=== PATIENT | female | born 1995 | race Caucasian/White ===

== ENCOUNTER 2025-02-12 10:53 | Outpatient (AMB) | payer BC, SELFPAY ==
--- OUTSIDE RECORDS SUMMARY | 2024-07-18 06:15 | XMS_ITS ---
Author Organization [facility] Address [address] [place] [id number] Care Team Providers Care Electrolysis Investigator Name Role Phone Nba Sallie Unavailable [phone] Encounters Encounter Location Date Provider Diagnosis [address] [id number] 07/18/2024 Sallie Arango Plan Of Treatment No Information Progress Notes * Denita JOHNSON NDOB:1995 (29 yo F)Acc No.[id number]:07/18/2024 Progress Notes Patient: Denita MERCADO Provider: Trinh Arango DPM :1995 A ge:29 Y S ex:Female Date:07/18/2024 Address:[address] [place], [place] [id number] Subjective: * Chief Complaints: * * Medical History: Objective: * Vitals: Assessment: Plan: * Treatment: * Images: * The named appointment provid er may or may not be the originator of this progress note, and it is not deemed complete until electronically signed by the appointment provider. Sign off status: Pending * Provider: Trinh Arango DPM Date: 0 07/18/2024 Generated for Printi ng/Faxing/eTransmitting on: 1 03:07 AM EDT
--- OUTSIDE RECORDS SUMMARY | 2024-08-11 06:30 | XMS_ITS ---
Author Organization [facility] Address [address] [place] [phone] Care Team Providers Care Batch Plant Operator Name Role Phone Nba Sallie Unavailable [phone] Encounters Encounter Location Date Provider Diagnosis [address] [address] 08/11/2024 Sallie Arango Plan Of Treatment No Information Progress Notes * Denita JOHNSON NDOB:1995 (29 yo F)Acc No.[id number]:08/11/2024 Progress Notes Patient: Denita MERCADO Provider: Trinh Arango DPM :1995 A ge:29 Y S ex:Female Date:08/11/2024 Address:[address] [place], [place] [phone] Subjective: * Chief Complaints: * * Medical History: Objective: * Vitals: Assessment: Plan: * Treatment: * Images: * The named appointment provid er may or may not be the originator of this progress note, and it is not deemed complete until electronically signed by the appointment provider. Sign off status: Pending * Provider: Trinh Arango DPM Date: 0 08/11/2024 Generated for Printi ng/Faxing/eTransmitting on: 1 03:07 AM EDT
--- OUTSIDE RECORDS SUMMARY | 2024-08-14 05:30 | XMS_ITS ---
Author Organization [facility] [address] Address [address] [place] [address] Care Team Providers Care Honeycomb Decapper Name Role Phone SILVERMAN, BIPIN Unavailable [phone] Encounters Encounter Location Date Provider Diagnosis [facility] [address] [place] [address] 08/14/2024 BIPIN SILVERMAN Plan Of Treatment Next Appt Details Provider Name:BIPIN SILVERMAN 03/19/2025 01:00:00 PM, [address], [place], [phone], Progress Notes * Roderick PASTRANA OB:1995 (29 yo F)Acc No.[id number]:08/14/2024 Progress Notes Patient: Mati BUENODenita SANTANA Provider: Lisa MYERS PA-C :1995 A ge:29 Y S ex:Female Date:08/14/2024 Address:[address] [place], [place] [phone] Subjective: * Chief Complaints: * * Medical History: Objective: * Vitals: Assessment: Plan: * Treatment: * Images: Billing Information: * Visit Code: * Procedure Codes: Care Plan Details* * Electronic signature of HARSHA SILVERMAN PA-C on 02/12/2025 at 03:07 AM EDT Sign off status: Pending * Provider: Lisa MYERS PA-C Date: 0 08/14/2024 Generated for Loly logan/Briana/eTransmitting on: 1 03:07 AM EDT
--- NOTE | 2025-02-12 10:55 | A.OFFVIS_ITS ---
Vital Signs 02/12/25 11:00 Height 5 ft 5 in Weight 130 lb BMI 21.6 BP 129/74 Blood Pressure Location Rt brachial Position Sitting Respiration 16 Pulse 55 Pulse Source Pulse Oximeter Intake Visit Reasons: Follow up - Migranes [facility] patient Waterproofer Required: No Allergies No Known Allergies (No Known Allergies*) Allergy (Unverified 01/25/20 16:56) Medication List - Last Reconciled 02/12/25 by Charlette Mata, MARJAN erenumab-aooe (Aimovig Autoinjector) mg subcut levonorgestrel (Mirena) intrauterine ubrogepant (Ubrelvy) mg PO HPI Comments Details: Denita is a 29-year-old female patient with a past medical history of headaches and anxiety who was a previous patient of mine at [facility]. She is here today to reestablish care with myself. I last saw her in July of 2024 at which time she was started on Aimovig 70 mg subcutaneous monthly injections. She has been previously trialed on Emgality with some initial improvement but affects wearing off. She has also been on topiramate for prevention in the past with some marginal benefit. She last saw Lima Stack. ZYGLO INSPECTOR at [facility] in January of 2025. At that time, she was continued on the Aimovig, magnesium and riboflavin supplementation, and Ubrelvy. She tells me today that her migraines have been much less on the Aimovig. Her last migraine was approximately 3 weeks ago and she can not identify any specific triggers aside from a busy day at work and possibly some bright lights. She does however note that the week leading up to her next injection she does tend to have more breakthrough migraines. She has been using the Ubrelvy 100 mg as needed. She tells me that it does resolve her migraine but it takes approximately 2 hours for complete headache . Her migraine characteristics have not changed over time and include severe head pain accompanied by nausea and vomiting often awakening her from sleep. She did self discontinue the topiramate and found no benefit with the magnesium and riboflavin and has since stopped taking that as well. Past medication trials: Topiramate 100 mg twice daily marginal benefit Amitriptyline 10 mg-no benefit and somnolence Propranolol-no benefit and nausea Sumatriptan-no significant benefit Rizatriptan-no significant benefit Eletriptan-no significant benefit Emgality-some initial benefit but over time stopped working Prior workup: MRI of the brain with without contrast performed 02/10/[address] [facility]: No mass effect, midline shift, intracranial hemorrhage, or acute in farction. No hydrocephalus. Normal flow voids. No white matter hyperintensities. Unremarkable orbits, orbital soft tissues, mastoid air cells. No acute calvarial abnormality. Unremarkable paranasal sinuses. Midline structures are unremarkable. Impression: No acute intracranial abnormality. No findings to explain patient's symptoms. [facility] Medical History (Updated 02/12/25 @ 11:35 by Charlette Mata CNP) Migraine Social History Alcohol intake: never Patient Tobacco Use Status: Never used Tobacco Review of Systems Const All systems reviewed & are unremarkable except as noted in HPI and below Physical Exam Vital Signs: Last Vital Signs Pulse 55 02/12/25 11:00 Resp 16 02/12/25 11:00 BP 129/74 02/12/25 11:00 BMI result Body Mass Index 21.6 Const General: cooperative, healthy appearing, comfortable and no acute distress Nutritional Appearance: well nourished Orientation/consciousness: patient oriented x3 Limitations: no limitations HEENT Head: Yes normal to inspection and Yes normocephalic Eyes General: appearance normal, both eyes and all related structures Visual Dutton: normal visual dutton by confrontation Alignment and Position: alignment normal Periorbital: periorbital findings normal Eyelids: Yes eyelids normal Conjunctivae: conjunctivae normal Sclerae: sclerae normal Neck Neck: Yes normal visual inspection and Yes full ROM General: Yes no CVA tenderness Back/Spine/Pelvis Back: no CVA tenderness Cervical Spine: normal cervical lordosis Thoracic/Lumbar Spine: thoracic and lumbar spine normal to inspection Neuro General: patient oriented x3 and deep tendon reflexes 2+ bilaterally Cranial nerves: Yes CN's II-XII intact bilaterally and Yes Facial sensation intact/muscles of mastication intact Cognition (Neuro): normal cognition Gait exam (Neuro): Normal gait present Motor exam (neuro): 5/5 motor strength present throughout and no tremor noted Sensory Exam: double simultaneous stimulation for sensation normal Romberg Test: Negative Pupils: Normal pupillary reactivity/response: bilateral Psych Appearance: grossly normal Mental Status: mental status grossly normal Speech and movement: Normal speech and movement present and Clear speech present Affect: normal affect Attitude: cooperative Thought process: Normal thought process present Thought content: Normal thought content present Insight: Good insight present (Psych) Judgement: Good judgement present (Psych) Assessment & Plan Assessment & Plan (1) Migraine without aura and without status migrainosus, not intractable: Code(s): G43.009 - Migraine without aura, not intractable, without status migrainosus Category: Medical Plan Denita is a 29-year-old female patient with a past medical history of headac hes and anxiety who was a previous patient of mine at [facility]. Overall, she has been improving on Aimovig 70mg but does note some wear off affects leading up to her next injections. I will increase the dose to 140 mg monthly. As for her Ubrelvy, she does have relief of her migraines but it takes approximately 2 hours for relief. I did provide her with samples of Nurtec in office today. She will update me via patient portal on how the Nurtec works were and we can consider switching her to the Nurtec. -increase Aimovig from 70 mg monthly to 140 mg monthly -continue Ubrelvy 100 mg as needed for acute therapy for now -a trial of Nurtec 75 mg as needed for migraine provided to patient today. -follow up in 6 months or sooner if needed Medications: New erenumab-aooe (Aimovig Autoinjector) 140 mg subcut QMONTH 1 mL 5RF Coding Level of Care Code New Pt Level 4 (72322) Diagnoses Migraine without aura and without status migrainosus, not intractable G43.009
[2025-02-12 11:00] VITALS: BP 129/74; PULSE 55; RESP 16; BMI 21.6
--- OUTSIDE RECORDS SUMMARY | 2025-02-12 13:16 | XMS_ITS | Patient Health Record ---
Author Organization [facility] [address] Address [address] [place] [address] Care Team Providers Care Explosive Operator Bomb Name Role Phone BIPIN SILVERMAN Unavailable [phone] SARYMARYAN Gonzalez Unavailable [phone] Allergies No Known Allergies Results Component Value Reference Range Notes Comp. Metabolic Panel (14)-3 [id number] Reviewed date:01/29/2025 10:47:21 AM Interpretation: Performing Lab:[facility], [address] [place] [address], [place], Phone - [phone], Director - Steven Notes/Report: Glucose 82 70-99 mg/dL BUN 14 6-20 mg/dL Creatinine 0.82 0.57-1.00 mg/dL eGFR 100 >59 mL/min/1.73 BUN/Creatinine Ratio 17 9-23 Sodium 139 134-144 mmol/L Potassium 4.4 3.5-5.2 mmol/L Chloride 104 96-106 mmol/L Carbon Dioxide, Total 21 20-29 mmol/L Calcium 9.5 8.7-10.2 mg/dL Protein, Total 6.8 6.0-8.5 g/dL Albumin 4.4 4.0-5.0 g/dL Globulin, Total 2.4 1.5-4.5 g/dL Bilirubin, Total 0.5 0.0-1.2 mg/dL Alkaline Phosphatase 49 44-121 IU/L Effective January 22, 2025 Alkaline Phosphatase reference interval will be changing to: Age Male Female 0 - 5 days 47 - 127 47 - 127 6 - 10 days 29 - 242 29 - 242 11 - 20 days 109 - 357 109 - 357 21 - 30 days 94 - 494 94 - 494 1 - 2 months 149 - 539 149 - 539 3 - 6 months 131 - 452 131 - 452 7 - 11 months 117 - 401 117 - 401 12 months - 6 years 158 - 369 158 - 369 7 - 12 years 150 - 409 150 - 409 13 years 156 - 435 78 - 227 14 years 114 - 375 64 - 161 15 years 88 - 279 56 - 134 16 years 74 - 207 51 - 121 17 years 63 - 161 47 - 113 18 - 20 years 51 - 125 42 - 106 21 - 50 years 47 - 123 41 - 116 51 - 80 years 49 - 135 51 - 125 >80 years 48 - 129 48 - 129 AST (SGOT) 16 0-40 IU/L ALT (SGPT) 12 0-32 IU/L Lipid Panel-[id number] Reviewed date:01/29/2025 10:47:21 AM Interpretation: Performing Lab:[facility], [address] [facility], Phone - [phone], Director - Steven Notes/Report: Cholesterol, Total 177 100-199 mg/dL Triglycerides 35 0-149 mg/dL HDL Cholesterol 72 >39 mg/dL VLDL Cholesterol Hayden 8 5-40 mg/dL LDL Chol Calc (NIH) 97 0-99 mg/dL Vitamin D, [id number] Reviewed date:01/29/2025 10:47:21 AM Interpretation: Performing Lab:[facility], [address] [facility], [place], Phone - [phone], Director - Steven Notes/Report: Vitamin D, 25-Hydroxy 30.4 30.0-100.0 ng/mL Vitamin D deficiency has been defined by the [place] [employer] and an Endocrine Society practice guideline as a level of serum 25-OH vitamin D less than 20 ng/mL (1,2). The Endocrine Society went on to further define vitamin D insufficiency as a level between 21 and 29 ng/mL (2). 1. IOM ([place] of [employer]). 2010. Dietary reference intakes for calcium and D. [place]: The National Academies Press. 2. Christoph MF, Raymon MEEHAN, Reji GUTIERREZ, et al. Evaluation, treatment, and prevention of vitamin D deficiency: an Endocrine Society clinical practice guideline. JCEM. 2010; 96(7):1911-30. CBC With Differential/Platel et-[id number] Reviewed date:01/29/2025 10:47:21 AM Interpretation: Performing Lab:[facility] [place], [address] [place] [address], Phone - [phone], Director - MDJodry Notes/Report: WBC 5.8 3.4-10.8 x10E3/uL RBC 4.47 3.77-5.28 x10E6/uL Hemoglobin 13.9 11.1-15.9 g/dL Hematocrit 42.8 34.0-46.6 % MCV 96 79-97 fL MCH 31.1 26.6-33.0 pg MCHC 32.5 31.5-35.7 g/dL RDW 12.4 11.7-15.4 % Platelets 241 150-450 x10E3/uL Neutrophils 51 Not Estab. % Lymphs 36 Not Estab. % Monocytes 9 Not Estab. % Eos 3 Not Estab. % Basos 1 Not Estab. % Neutrophils (Absolute) 3.0 1.4-7.0 x10E3/uL Lymphs (Absolute) 2.1 0.7-3.1 x10E3/uL Monocytes(Absolute) 0.5 0.1-0.9 x10E3/uL Eos (Absolute) 0.2 0.0-0.4 x10E3/uL Baso (Absolute) 0.0 0.0-0.2 x10E3/uL Immature Granulocytes 0 Not Estab. % Immature Grans (Abs) 0.0 0.0-0.1 x10E3/uL [id number] Reviewed date:01/29/2025 10:47:21 AM Interpretation: Performing Lab:[facility], [address] [place] [address], Phone - [phone], Director - MDJodry Notes/Report: TSH 1.400 0.450-4.500 uIU/mL Hemoglobin [id number] Reviewed date:01/29/2025 10:47:21 AM Interpretation: Performing Lab:[facility] [place], [address] [place] [address], [place], Phone - [phone], Director - MDLesliedry Notes/Report: Hemoglobin A1c 5.2 4.8-5.6 % . Prediabetes: 5.7 - 6.4 Diabetes: >6.4 Glycemic control for adults with diabetes: <7.0 Comp. Metabolic Panel (14)-3 38927 Reviewed date:03/21/2024 10:04:47 AM Interpretation: Performing Lab:[facility], [address] [facility], [place], Phone - [phone], Director - Eriaky Notes/Report: Glucose 88 70-99 mg/dL BUN 15 6-20 mg/dL Creatinine 1.07 0.57-1.00 mg/dL eGFR 73 >59 mL/min/1.73 BUN/Creatinine Ratio 14 9-23 Sodium 143 134-144 mmol/L Potassium 4.4 3.5-5.2 mmol/L Chloride 109 96-106 mmol/L Carbon Dioxide, Total 17 20-29 mmol/L Calcium 9.8 8.7-10.2 mg/dL Protein, Total 7.3 6.0-8.5 g/dL Albumin 4.4 4.0-5.0 g/dL Globulin, Total 2.9 1.5-4.5 g/dL Bilirubin, Total 0.2 0.0-1.2 mg/dL Alkaline Phosphatase 56 44-121 IU/L AST (SGOT) 13 0-40 IU/L ALT (SGPT) 7 0-32 IU/L Lipid Panel-[id number] Reviewed date:03/21/2024 10:04:47 AM Interpretation: Performing Lab:[facility], [address] [facility], [place], Phone - [phone], Director - Erikay Notes/Report: Cholesterol, Total 223 100-199 mg/dL Triglycerides 67 0-149 mg/dL HDL Cholesterol 87 >39 mg/dL VLDL Cholesterol Hayden 12 5-40 mg/dL LDL Chol Calc (NIH) 124 0-99 mg/dL Vitamin D, [id number] Reviewed date:03/21/2024 10:04:47 AM Interpretation: Performing Lab:[facility], [address] [facility], [place], Phone - [phone], Director - Reydry Notes/Report: Vitamin D, 25-Hydroxy 38.7 30.0-100.0 ng/mL Vitamin D deficiency has been defined by the [place] [employer] and an Endocrine Society practice guideline as a level of serum 25-OH vitamin D less than 20 ng/mL (1,2). The Endocrine Society went on to further define vitamin D insufficiency as a level between 21 and 29 ng/mL (2). 1. IOM ([place] [employer]). 2010. Dietary reference intakes for calcium and D. [place]: The National Academies Press. 2. Christoph MF, Raymon [place], Reji GUTIERREZ, et al. Evaluation, treatment, and prevention of vitamin D deficiency: an Endocrine Society clinical practice guideline. JCEM. 2010; 96(7):1911-30. CBC With Differential/Platel et-[id number] Reviewed date:03/21/2024 10:04:47 AM Interpretation: Performing Lab:[facility], [address] [facility], Phone - [phone], Director - Steven Notes/Report: WBC 4.9 3.4-10.8 x10E3/uL RBC 4.56 3.77-5.28 x10E6/uL Hemoglobin 14.4 11.1-15.9 g/dL Hematocrit 44.3 34.0-46.6 % MCV 97 79-97 fL MCH 31.6 26.6-33.0 pg MCHC 32.5 31.5-35.7 g/dL RDW 12.2 11.7-15.4 % Platelets 236 150-450 x10E3/uL Neutrophils 45 Not Estab. % Lymphs 44 Not Estab. % Monocytes 7 Not Estab. % Eos 3 Not Estab. % Basos 1 Not Estab. % Neutrophils (Absolute) 2.2 1.4-7.0 x10E3/uL Lymphs (Absolute) 2.1 0.7-3.1 x10E3/uL Monocytes(Absolute) 0.4 0.1-0.9 x10E3/uL Eos (Absolute) 0.1 0.0-0.4 x10E3/uL Baso (Absolute) 0.1 0.0-0.2 x10E3/uL Immature Granulocytes 0 Not Estab. % Immature Grans (Abs) 0.0 0.0-0.1 x10E3/uL [id number] Reviewed date:03/21/2024 10:04:47 AM Interpretation: Performing Lab:[facility], [address] [facility], [place], Phone - [phone], Director - Steven Notes/Report: TSH 1.300 0.450-4.500 uIU/mL Hemoglobin [id number] Reviewed date:03/21/2024 10:04:47 AM Interpretation: Performing Lab:[facility] [place], [address] [place] [address], Phone - [phone], Director - MDLizbety Notes/Report: Hemoglobin A1c 5.0 4.8-5.6 % . Prediabetes: 5.7 - 6.4 Diabetes: >6.4 Glycemic control for adults with diabetes: <7.0 Comp. Metabolic Panel (14)-3 [id number] Reviewed date:06/04/2024 07:18:30 PM Interpretation: Performing Lab:[facility] [place], [address] [place] [address], Phone - [phone], Director - MDLizbety Notes/Report: Glucose 90 70-99 mg/dL BUN 12 6-20 mg/dL Creatinine 0.93 0.57-1.00 mg/dL eGFR 86 >59 mL/min/1.73 BUN/Creatinine Ratio 13 9-23 Sodium 140 134-144 mmol/L Potassium 3.8 3.5-5.2 mmol/L Chloride 107 96-106 mmol/L Carbon Dioxide, Total 19 20-29 mmol/L Calcium 9.7 8.7-10.2 mg/dL Protein, Total 7.7 6.0-8.5 g/dL Albumin 4.6 4.0-5.0 g/dL Globulin, Total 3.1 1.5-4.5 g/dL Bilirubin, Total 0.4 0.0-1.2 mg/dL Alkaline Phosphatase 58 44-121 IU/L AST (SGOT) 17 0-40 IU/L ALT (SGPT) 11 0-32 IU/L Lipid Panel-[id number] Reviewed date:06/05/2024 09:01:38 AM Interpretation: Performing Lab:[facility] [place], [address] [place] [address], Phone - [phone], Director - MDLesliedry Notes/Report: Cholesterol, Total 195 100-199 mg/dL Triglycerides 48 0-149 mg/dL HDL Cholesterol 79 >39 mg/dL VLDL Cholesterol Hayden 9 5-40 mg/dL LDL Chol Calc (NIH) 107 0-99 mg/dL Reason For Referral Diagnosis 1 Bunion (M21.619) Referral Organization [facility] [address] Referring Provider First Name BIPIN Referring Provider Last Name ANDRA Referring Provider Speciality Internal M edicine Referred Provider Specialty Podiatry General Notes Emerita Duggan 2024 03:04:38 PM [facility], [phone], [phone] Referral Priority Routine Medications Medication SIG (Take, Route, Fr equency, Duration) Notes Start Date End Date Status Ubrelvy 100 MG 1 tablet may take se cond dose at least 2 hours after first dose as needed Orally Once a day; Duration: 30 days prn 03/08/2023 Active Topiramate 100 MG TAKE 1 TABLET BY LUCIA EVERY DAY FOR 30 DAYS; Duration: 90 days A ctive Mirena Active Celecoxib 200 MG TAKE 1 CAPSULE BY [facility] TWICE A DAY WITH FOOD; Duration: 30 Acti ve Social History Tobacco Use: Social History Observation Description Date Details (start date - stop date) Never Smoker NA - NA Tobacco Use/Smoking Question Answer Notes Are you a nonsmoker Section Notes: 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 pediatric office Problems Problem Type SNOMED Code ICD Code Onset Dates Problem Status W/U Status Risk Notes Problem Vitamin D deficiency (17401290) Vitamin D deficiency, unspecified (E55.9) Active confirmed Problem Mixed hyperlipidemia (383500696) Mixed hyperlipidemia (E78.2) Active confirmed Problem Lipid screening (913104223) Encounter for screening for lipoid disorders (Z13.220) Active confirmed Problem Anxiety (85715146) Anxiety (F41.9) Active confirmed Problem Adult health examination (260440927) Adult general medical exam (Z00.00) Active confirmed Problem Bunion (805319218) Bunion (M21.619) Active confirmed Problem Diabetes mellitus screening (344109449) Diabetes mellitus screening (Z13.1) Active confirmed Problem Raynaud's disease (946233874) Raynaud's disease without gangrene (I73.00) Active confirmed Problem Migraine without aura (39976597) Migraine without aura and with status migrainosus, not intractable (G43.001) Active confirmed Problem Endocrine/metabol ic screening (569541417) Encounter for screening for endocrine disorder (Z13.29) Active confirmed Problem Hyperlipidemia (05142489) Mild hyperlipidemia (E78.5) Active confirmed Problem Migraine (64692908) Migraine syndrome (G43.909) Active confirmed Vital Signs Heart Rate 68 /min 05/29/2024 Oximetry 97 % 05/29/2024 Blood pressure diastolic 80 mm Hg 05/29/2024 Height 65 in 05/29/2024 Blood pressure systolic 120 mm Hg 05/29/2024 Weight 141.0 lbs 05/15/2024 BMI 23.46 kg/m2 05/15/2024 Encounters Encounter Location Date Provider Diagnosis [facility] [address] [place] [address] 03/13/2024 BIPIN SILVERMAN Anxiety F41.9 ; Well ness examination Z00.00 and Migraine without aura and with status migrainosus, not intractable G43.001 [facility] [address] [place] [address] 03/21/2024 BIPIN SILVERMAN Anxiety F41.9 ; Elev ated serum creatinine R79.89 ; Migraine without aura and with status migrainosus, not intractable G43.001 and Mixed hyperlipidemia E78.[address] [facility] [address] [place] [address] 05/15/2024 BIPIN SILVERMAN Elevated serum creat inine R79.89 ; Migraine without aura and with status migrainosus, not intractable G43.001 ; Anxiety F41.9 and Mixed hyperlipidemia E78.[address] [facility] [address] [place] [address] 05/29/2024 MARYAN SARY Bunion of right foot M21.611 ; Bunion of left foot M21.612 ; Raynaud's disease without gangrene I73.00 ; Migraine syndrome G43.909 and Mild hyperlipidemia E78.[address] [facility] [address] [facility] [address] [place] [address] 03/21/2024 BIPIN SILVERMAN Mixed hyperlipidemia E78.2 and Elevated serum creatinine R79.89 [facility] [address] [place] [address] [place] [address] 07/06/2024 BIPIN SILVERMAN [facility] [address] [facility] [address] [place] [address] 03/21/2024 BIPIN SILVERMAN [facility] [address] [address] 10/06/2024 BIPIN SILVERMAN [facility] [address] [address] 01/10/2025 BIPIN SILVERMAN [facility] [address] [address] 01/10/2025 BIPIN SILVERMAN [facility] [address] [address] 01/10/2025 BIPIN SILVERMAN Assessments Encounter Date Diagnosis (ICD Code) Assessment Notes Treatment Notes Treatment Clinical Notes Section Notes 03/13/2024 Anxiety (ICD-10 - F41.9) Denita is a pleasant 29-year-old female presents the office for a complete physical exam. # Up-to-date on flu vaccine and tetanus, declines COVID, up-to-date on Pap smear. # Obtaining fasting blood work, will call with concern # Continue following with dentist, and ophthalmology and TECHNICAL ACCOUNT MANAGER for routine checks. # Following with neurology for migraines. Currently taking Ubrelvy 100 mg as needed, and Topamax 100 mg daily. Patient admits to fatigue, could be related to the Topamax. They just increase this dose as her migraines have been uncontrolled approximately 4-5 migraines monthly. Did discuss alternative preventative options such as Qulipta, or injections such as Aimovig, or Emgality. Also did discuss alternative as needed medication such as Nurtec, or Zavzpret. Patient going to follow with neurology in 3 weeks # PHQ-9 total score of 2, no concern regarding mental health at this time. # Patient admits to left wrist pain that comes and goes for the past few months, no red flag symptoms. Could be due to repetitive overuse. Discussed bracing, anti-inflammatories. No further workup indicated at this time but if symptoms persist could consider x-ray/referral as needed Follow-up in 2 months to assess migraines, and blood work, sooner as needed. Patient seen and examined. Comprehensive discussion was done on the following. 1. Nutrition: It is important to follow a healthy diet based on lots of vegetables and legumes and good fat. Avoid processed food and processed carbohydrates. Prepare your own meals. Read labels and avoid high fructose corn syrup, processed chemicals added to increase shelf life and preprepared meals. Avoid fast foods. Eat slowly and plan meals for a week. Try to count calories and be mindful off daily calorie intake. Get into the habit of keeping an eye on your weight by using an appropriate scale. Learn to log exercise and discussed fitness Apps like TruantToday which can help keep log off calories taken versus calories burned. Local food should be preferred. Discussed Dirty Dozen Versus Clean Fifteen. Discussed healthy supplements like fish oil, Tumeric, Curcumin, Melatonin, Resveratrol, Probiotics, Vitamin-D, Alpha-Lipoic acid, Vitamin-D and coconut oil. 2. It is important to exercise regularly. Is a good habit to walk at least 30 minutes a day. Gentle weightlifting with standard precautions to protect the back. Finding activity like cycling or hiking and get into the habit of engaging in it. Stretching before and after the exercises important. It is also important to contact me if there are any problems like shortness of breath, chest pain, back pain and joint or muscle pain associated with the exercise. 3. Discussed age appropriate screening guidelines. Colonoscopy needs to start at age 50 with stool for occult blood as appropriate. There is a new test that can test for genetic abnormalities in the stool sample, Cologuard. This would not replace a colonoscopy but could be used as a screening tool for patients who do not want a colonoscopy. We discussed the importance of early detection of colon cancer. 4. Discussed current guidelines with respect to breast examination, mammogram and pap smear for early detection of breast and cervical cancer. Patient advised to follow up with these appointments. 5. Discussed safe driving and no use of smart phone while driving 6. Age-appropriate immunizations were discussed. A tetanus booster is needed every 10 years. Flu vaccine is recommended every year just before the start of the flu season. Shingles vaccine is recommended after age 50 but not all insurances cover it. Pneumonia vaccine is given after age 65 unless there are certain comorbidities for which it is started earlier. 7. Diagnostic labs were discussed. These could include/not limited to CBC CMP and lipids with fasting blood glucose and insulin levels. Vitamin D and hemoglobin A1c testing might be appropriate. All quetsions answered to patients satisfaction. Patient verbalized understanding of diagnosis and treatments explained. To call sooner prior to next visit it any questions/concerns arise. Case discussed with collaborating physician Dale Boyle who reviewed the assessment and plan. Chart, medications, labs, vital signs reviewed. Dictation was accomplished with the use of .[employer] voice recognition software, prone to medical misidentifications and grammatical errors. This is unintentional and the practitioner does try to identify and correct these, but some could still be present. Please do not hesitate to contact practitioner for clarification. 03/13/2024 Wellness examination (ICD-10 - Z00.00) Denita is a pleasant 29-year-old female presents the office for a complete physical exam. # Up-to-date on flu vaccine and tetanus, declines COVID, up-to-date on Pap smear. # Obtaining fasting blood work, will call with concern # Continue following with dentist, and ophthalmology and TECHNICAL ACCOUNT MANAGER for routine checks. # Following with neurology for migraines. Currently taking Ubrelvy 100 mg as needed, and Topamax 100 mg daily. Patient admits to fatigue, could be related to the Topamax. They just increase this dose as her migraines have been uncontrolled approximately 4-5 migraines monthly. Did discuss alternative preventative options such as Qulipta, or injections such as Aimovig, or Emgality. Also did discuss alternative as needed medication such as Nurtec, or Zavzpret. Patient going to follow with neurology in 3 weeks # PHQ-9 total score of 2, no concern regarding mental health at this time. # Patient admits to left wrist pain that comes and goes for the past few months, no red flag symptoms. Could be due to repetitive overuse. Discussed bracing, anti-inflammatories. No further workup indicated at this time but if symptoms persist could consider x-ray/referral as needed Follow-up in 2 months to assess migraines, and blood work, sooner as needed. Patient seen and examined. Comprehensive discussion was done on the following. 1. Nutrition: It is important to follow a healthy diet based on lots of vegetables and legumes and good fat. Avoid processed food and processed carbohydrates. Prepare your own meals. Read labels and avoid high fructose corn syrup, processed chemicals added to increase shelf life and preprepared meals. Avoid fast foods. Eat slowly and plan meals for a week. Try to count calories and be mindful off daily calorie intake. Get into the habit of keeping an eye on your weight by using an appropriate scale. Learn to log exercise and discussed fitness Apps like [employer] which can help keep log off calories taken versus calories burned. Local food should be preferred. Discussed Dirty Dozen Versus Clean Fifteen. Discussed healthy supplements like fish oil, Tumeric, Curcumin, Melatonin, Resveratrol, Probiotics, Vitamin-D, Alpha-Lipoic acid, Vitamin-D and coconut oil. 2. It is important to exercise regularly. Is a good habit to walk at least 30 minutes a day. Gentle weightlifting with standard precautions to protect the back. Finding activity like cycling or hiking and get into the habit of engaging in it. Stretching before and after the exercises important. It is also important to contact me if there are any problems like shortness of breath, chest pain, back pain and joint or muscle pain associated with the exercise. 3. Discussed age appropriate screening guidelines. Colonoscopy needs to start at age 50 with stool for occult blood as appropriate. There is a new test that can test for genetic abnormalities in the stool sample, Cologuard. This would not replace a colonoscopy but could be used as a screening tool for patients who do not want a colonoscopy. We discussed the importance of early detection of colon cancer. 4. Discussed current guidelines with respect to breast examination, mammogram and pap smear for early detection of breast and cervical cancer. Patient advised to follow up with these appointments. 5. Discussed safe driving and no use of smart phone while driving 6. Age-appropriate immunizations were discussed. A tetanus booster is needed every 10 years. Flu vaccine is recommended every year just before the start of the flu season. Shingles vaccine is recommended after age 50 but not all insurances cover it. Pneumonia vaccine is given after age 65 unless there are certain comorbidities for which it is started earlier. 7. Diagnostic labs were discussed. These could include/not limited to CBC CMP and lipids with fasting blood glucose and insulin levels. Vitamin D and hemoglobin A1c testing might be appropriate. All quetsions answered to patients satisfaction. Patient verbalized understanding of diagnosis and treatments explained. To call sooner prior to next visit it any questions/concerns arise. Case discussed with collaborating physician Dale Boyle who reviewed the assessment and plan. Chart, medications, labs, vital signs reviewed. Dictation was accomplished with the use of .[employer] voice recognition software, prone to medical misidentifications and grammatical errors. This is unintentional and the practitioner does try to identify and correct these, but some could still be present. Please do not hesitate to contact practitioner for clarification. 03/21/2024 Anxiety (ICD-10 - F41.9) # Up-to-date on flu vaccine and tetanus, declines COVID, up-to-date on Pap smear. # Hyperlipidemia: Total cholesterol 228, LDL 124. Discussed fish oil, lifestyle #Creatinine 1.07, chloride 109, carbon dioxide 17. Discussed limiting acidic foods, focusing on a plant based diet first, increasing water intake. Will repeat values for visit in May. Will mail lab slip. # Continue following with dentist, and ophthalmology and TECHNICAL ACCOUNT MANAGER for routine checks. # Following with neurology for migraines. Currently taking Ubrelvy 100 mg as needed, and Topamax 100 mg daily. Patient admits to fatigue, could be related to the Topamax. They just increase this dose as her migraines have been uncontrolled approximately 4-5 migraines monthly. Did discuss alternative preventative options such as Qulipta, or injections such as Aimovig, or Emgality. Also did discuss alternative as needed medication such as Nurtec, or Zavzpret. Patient going to follow with neurology in 3 weeks # PHQ-9 total score of 2, no concern regarding mental health at this time. # Patient admits to left wrist pain that comes and goes for the past few months, no red flag symptoms. Could be due to repetitive overuse. Discussed bracing, anti-inflammatories. No further workup indicated at this time but if symptoms persist could consider x-ray/referral as needed Follow-up in May to assess migraines, and blood work. Will mail lab slip for lipid panel and CMP in the meantime. Patient is seen today via telehealth agreement, with consent of patient. I used the following telehealth technology (telephone/[employer]/ skype) during this visit This encounter is appropriate and reasonable under the circumstances given the patient's particular presentation. The patient has been advised of the potential risks and limitations of this mode of treatment Including but not limited to the absence of in person physical examination,and has agreed to be treated in a remote fashion in spite of this. Any and all patient questions have been answered. The patient also has been advised to contact this office for worsening conditions or problems and seek medical treatment and/or call 911 if the patient deems either necessary All quetsions answered to patients satisfaction. Patient verbalized understanding of diagnosis and treatments explained. To call sooner prior to next visit it any questions/concerns arise. Case discussed with collaborating physician Dale Boyle who reviewed the assessment and plan. Chart, medications, labs, vital signs reviewed. Dictation was accomplished with the use of [employer] voice recognition software, prone to medical misidentifications and grammatical errors. This is unintentional and the practitioner does try to identify and correct these, but some could still be present. Please do not hesitate to contact practitioner for clarification. 03/21/2024 Elevated serum creatinine (ICD-10 - R79.89) # Up-to-date on flu vaccine and tetanus, declines COVID, up-to-date on Pap smear. # Hyperlipidemia: Total cholesterol 228, LDL 124. Discussed fish oil, lifestyle #Creatinine 1.07, chloride 109, carbon dioxide 17. Discussed limiting acidic foods, focusing on a plant based diet first, increasing water intake. Will repeat values for visit in May. Will mail lab slip. # Continue following with dentist, and ophthalmology and TECHNICAL ACCOUNT MANAGER for routine checks. # Following with neurology for migraines. Currently taking Ubrelvy 100 mg as needed, and Topamax 100 mg daily. Patient admits to fatigue, could be related to the Topamax. They just increase this dose as her migraines have been uncontrolled approximately 4-5 migraines monthly. Did discuss alternative preventative options such as Qulipta, or injections such as Aimovig, or Emgality. Also did discuss alternative as needed medication such as Nurtec, or Zavzpret. Patient going to follow with neurology in 3 weeks # PHQ-9 total score of 2, no concern regarding mental health at this time. # Patient admits to left wrist pain that comes and goes for the past few months, no red flag symptoms. Could be due to repetitive overuse. Discussed bracing, anti-inflammatories. No further workup indicated at this time but if symptoms persist could consider x-ray/referral as needed Follow-up in May to assess migraines, and blood work. Will mail lab slip for lipid panel and CMP in the meantime. Patient is seen today via telehealth agreement, with consent of patient. I used the following telehealth technology (telephone/[employer]/ [employer]) during this visit This encounter is appropriate and reasonable under the circumstances given the patient's particular presentation. The patient has been advised of the potential risks and limitations of this mode of treatment Including but not limited to the absence of in person physical examination,and has agreed to be treated in a remote fashion in spite of this. Any and all patient questions have been answered. The patient also has been advised to contact this office for worsening conditions or problems and seek medical treatment and/or call 911 if the patient deems either necessary All quetsions answered to patients satisfaction. Patient verbalized understanding of diagnosis and treatments explained. To call sooner prior to next visit it any questions/concerns arise. Case discussed with collaborating physician Dale Boyle who reviewed the assessment and plan. Chart, medications, labs, vital signs reviewed. Dictation was accomplished with the use of [employer] voice recognition software, prone to medical misidentifications and grammatical errors. This is unintentional and the practitioner does try to identify and correct these, but some could still be present. Please do not hesitate to contact practitioner for clarification. 03/21/2024 Mixed hyperlipidemia (ICD-10 - E78.2) 05/15/2024 Elevated serum creatinine (ICD-10 - R79.89) # Stye of the right eye: Patient states is not painful. Discussed warm compresses. Did discuss criteria to call the office for antibiotic initiation. # Up-to-date on flu vaccine and tetanus, declines COVID, up-to-date on Pap smear. # Hyperlipidemia: Total cholesterol 228, LDL 124. Discussed fish oil, lifestyle. Repeating blood work #Creatinine 1.07, chloride 109, carbon dioxide 17. Discussed limiting acidic foods, focusing on a plant based diet first, increasing water intake. Repeating blood work # Continue following with dentist, and ophthalmology and TECHNICAL ACCOUNT MANAGER for routine checks. # Following with neurology for migraines. Currently taking Ubrelvy 100 mg as needed, and Topamax 100 mg daily. Patient admits to fatigue, could be related to the Topamax. They just increase this dose as her migraines have been uncontrolled approximately 4-5 migraines monthly. Did discuss alternative preventative options such as Qulipta, or injections such as Aimovig, or Emgality. Patient states she has a friend and Amipaque which helps her drastically. Also did discuss alternative as needed medication such as Nurtec, or Zavzpret. Patient following up with neurology in July. Did increase Ubrelvy to 150 mg as she noticed an improvement in migraines when she increase from 50 to 100 mg. Is aware the max dose is 200 mg. # PHQ-9 total score of 2, no concern regarding mental health at this time. Follow-up in August, to assess migraines, blood work, sooner as needed. All quetsions answered to patients satisfaction. Patient verbalized understanding of diagnosis and treatments explained. To call sooner prior to next visit it any questions/concerns arise. Case discussed with collaborating physician Dale Boyle who reviewed the assessment and plan. Chart, medications, labs, vital signs reviewed. Dictation was accomplished with the use of [employer] voice recognition software, prone to medical misidentifications and grammatical errors. This is unintentional and the practitioner does try to identify and correct these, but some could still be present. Please do not hesitate to contact practitioner for clarification. 05/15/2024 Migraine without aura and with status migrainosus, not intractable (ICD-10 - G43.001) # Stye of the right eye: Patient states is not painful. Discussed warm compresses. Did discuss criteria to call the office for antibiotic initiation. # Up-to-date on flu vaccine and tetanus, declines COVID, up-to-date on Pap smear. # Hyperlipidemia: Total cholesterol 228, LDL 124. Discussed fish oil, lifestyle. Repeating blood work #Creatinine 1.07, chloride 109, carbon dioxide 17. Discussed limiting acidic foods, focusing on a plant based diet first, increasing water intake. Repeating blood work # Continue following with dentist, and ophthalmology and TECHNICAL ACCOUNT MANAGER for routine checks. # Following with neurology for migraines. Currently taking Ubrelvy 100 mg as needed, and Topamax 100 mg daily. Patient admits to fatigue, could be related to the Topamax. They just increase this dose as her migraines have been uncontrolled approximately 4-5 migraines monthly. Did discuss alternative preventative options such as Qulipta, or injections such as Aimovig, or Emgality. Patient states she has a friend and Amipaque which helps her drastically. Also did discuss alternative as needed medication such as Nurtec, or Zavzpret. Patient following up with neurology in July. Did increase Ubrelvy to 150 mg as she noticed an improvement in migraines when she increase from 50 to 100 mg. Is aware the max dose is 200 mg. # PHQ-9 total score of 2, no concern regarding mental health at this time. Follow-up in August, to assess migraines, blood work, sooner as needed. All quetsions answered to patients satisfaction. Patient verbalized understanding of diagnosis and treatments explained. To call sooner prior to next visit it any questions/concerns arise. Case discussed with collaborating physician Dale Boyle who reviewed the assessment and plan. Chart, medications, labs, vital signs reviewed. Dictation was accomplished with the use of [employer] voice recognition software, prone to medical misidentifications and grammatical errors. This is unintentional and the practitioner does try to identify and correct these, but some could still be present. Please do not hesitate to contact practitioner for clarification. 05/29/2024 Bunion of right foot (ICD-10 - M21.611) Denita is a pleasant 29-year-old female present today for urgent visit. Past medical history includes migraine headaches, anxiety, Raynaud's syndrome. # Bunion: Patient has a moderate-sized bunion on the lateral aspect of the PIP joint of the fifth digit of the left foot. No surrounding erythema or inflammation present. Full range of motion of the digit and able to ambulate properly. 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 States that has been there for a while, but has become bothersome in the past 2 to 3 weeks. Patient has tenderness when wearing tight close toed sneakers or while horseback riding. Mild tenderness to palpation of the left foot bunion. Small bunion present bilaterally on right foot as well. No concern for gout at this time given history and physical exam. No recent trauma or concern for fracture. Plan to prescribe celebrex 200 mg twice daily to take as needed. Will defer xray at this time. Plan to place referral to podiatry for further evaluation. # Raynaud's: Followed by podiatry for this. Referral will be placed to podiatry for further monitoring. # Migraines: Followed by neurology. Ubrelvy recently increased from 50 to 100 mg with some improvement. Patient taking Topamax to 100 mg daily. Neurologist added amitriptyline, but patient has not started this. Continue with neurology recommendations. #Hyperlipidemia: Most recent blood work revealed elevated total cholesterol and LDL. Recommended fish oil supplement. Will continue to monitor. All questions answered to patients satisfaction. Patient verbalized understanding of diagnosis and treatments explained. To call sooner prior to next visit it any questions/concerns arise. Case discussed with collaborating physician Dr. Boyle who reviewed the assessment and plan. Chart, medications, labs, vital signs reviewed. Dictation was accomplished with the use of [employer] voice recognition software, prone to medical misidentifications and grammatical errors. This is unintentional and the practitioner does try to identify and correct these, but some could still be present. Please do not hesitate to contact practitioner for clarification. 05/29/2024 Bunion of left foot (ICD-10 - M21.612) Denita is a pleasant 29-year-old female present today for urgent visit. Past medical history includes migraine headaches, anxiety, Raynaud's syndrome. # Bunion: Patient has a moderate-sized bunion on the lateral aspect of the PIP joint of the fifth digit of the left foot. No surrounding erythema or inflammation present. Full range of motion of the digit and able to ambulate properly. 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 States that has been there for a while, but has become bothersome in the past 2 to 3 weeks. Patient has tenderness when wearing tight close toed sneakers or while horseback riding. Mild tenderness to palpation of the left foot bunion. Small bunion present bilaterally on right foot as well. No concern for gout at this time given history and physical exam. No recent trauma or concern for fracture. Plan to prescribe celebrex 200 mg twice daily to take as needed. Will defer xray at this time. Plan to place referral to podiatry for further evaluation. # Raynaud's: Followed by podiatry for this. Referral will be placed to podiatry for further monitoring. # Migraines: Followed by neurology. Ubrelvy recently increased from 50 to 100 mg with some improvement. Patient taking Topamax to 100 mg daily. Neurologist added amitriptyline, but patient has not started this. Continue with neurology recommendations. #Hyperlipidemia: Most recent blood work revealed elevated total cholesterol and LDL. Recommended fish oil supplement. Will continue to monitor. All questions answered to patients satisfaction. Patient verbalized understanding of diagnosis and treatments explained. To call sooner prior to next visit it any questions/concerns arise. Case discussed with collaborating physician Dr. Boyle who reviewed the assessment and plan. Chart, medications, labs, vital signs reviewed. Dictation was accomplished with the use of [employer] voice recognition software, prone to medical misidentifications and grammatical errors. This is unintentional and the practitioner does try to identify and correct these, but some could still be present. Please do not hesitate to contact practitioner for clarification. 05/29/2024 Raynaud's disease without gangrene (ICD-10 - I73.00) Denita is a pleasant 29-year-old female present today for urgent visit. Past medical history includes migraine headaches, anxiety, Raynaud's syndrome. # Bunion: Patient has a moderate-sized bunion on the lateral aspect of the PIP joint of the fifth digit of the left foot. No surrounding erythema or inflammation present. Full range of motion of the digit and able to ambulate properly. 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 States that has been there for a while, but has become bothersome in the past 2 to 3 weeks. Patient has tenderness when wearing tight close toed sneakers or while horseback riding. Mild tenderness to palpation of the left foot bunion. Small bunion present bilaterally on right foot as well. No concern for gout at this time given history and physical exam. No recent trauma or concern for fracture. Plan to prescribe celebrex 200 mg twice daily to take as needed. Will defer xray at this time. Plan to place referral to podiatry for further evaluation. # Raynaud's: Followed by podiatry for this. Referral will be placed to podiatry for further monitoring. # Migraines: Followed by neurology. Ubrelvy recently increased from 50 to 100 mg with some improvement. Patient taking Topamax to 100 mg daily. Neurologist added amitriptyline, but patient has not started this. Continue with neurology recommendations. #Hyperlipidemia: Most recent blood work revealed elevated total cholesterol and LDL. Recommended fish oil supplement. Will continue to monitor. All questions answered to patients satisfaction. Patient verbalized understanding of diagnosis and treatments explained. To call sooner prior to next visit it any questions/concerns arise. Case discussed with collaborating physician Dr. Boyle who reviewed the assessment and plan. Chart, medications, labs, vital signs reviewed. Dictation was accomplished with the use of [employer] voice recognition software, prone to medical misidentifications and grammatical errors. This is unintentional and the practitioner does try to identify and correct these, but some could still be present. Please do not hesitate to contact practitioner for clarification. 03/21/2024 Elevated serum creatinine (ICD-10 - R79.89) 05/15/2024 Anxiety (ICD-10 - F41.9) # Stye of the right eye: Patient states is not painful. Discussed warm compresses. Did discuss criteria to call the office for antibiotic initiation. # Up-to-date on flu vaccine and tetanus, declines COVID, up-to-date on Pap smear. # Hyperlipidemia: Total cholesterol 228, LDL 124. Discussed fish oil, lifestyle. Repeating blood work #Creatinine 1.07, chloride 109, carbon dioxide 17. Discussed limiting acidic foods, focusing on a plant based diet first, increasing water intake. Repeating blood work # Continue following with dentist, and ophthalmology and TECHNICAL ACCOUNT MANAGER for routine checks. # Following with neurology for migraines. Currently taking Ubrelvy 100 mg as needed, and Topamax 100 mg daily. Patient admits to fatigue, could be related to the Topamax. They just increase this dose as her migraines have been uncontrolled approximately 4-5 migraines monthly. Did discuss alternative preventative options such as Qulipta, or injections such as Aimovig, or Emgality. Patient states she has a friend and Amipaque which helps her drastically. Also did discuss alternative as needed medication such as Nurtec, or Zavzpret. Patient following up with neurology in July. Did increase Ubrelvy to 150 mg as she noticed an improvement in migraines when she increase from 50 to 100 mg. Is aware the max dose is 200 mg. # PHQ-9 total score of 2, no concern regarding mental health at this time. Follow-up in August, to assess migraines, blood work, sooner as needed. All quetsions answered to patients satisfaction. Patient verbalized understanding of diagnosis and treatments explained. To call sooner prior to next visit it any questions/concerns arise. Case discussed with collaborating physician Dale Boyle who reviewed the assessment and plan. Chart, medications, labs, vital signs reviewed. Dictation was accomplished with the use of [employer] voice recognition software, prone to medical misidentifications and grammatical errors. This is unintentional and the practitioner does try to identify and correct these, but some could still be present. Please do not hesitate to contact practitioner for clarification. 03/21/2024 Migraine without aura and with status migrainosus, not intractable (ICD-10 - G43.001) # Up-to-date on flu vaccine and tetanus, declines COVID, up-to-date on Pap smear. # Hyperlipidemia: Total cholesterol 228, LDL 124. Discussed fish oil, lifestyle #Creatinine 1.07, chloride 109, carbon dioxide 17. Discussed limiting acidic foods, focusing on a plant based diet first, increasing water intake. Will repeat values for visit in May. Will mail lab slip. # Continue following with dentist, and ophthalmology and TECHNICAL ACCOUNT MANAGER for routine checks. # Following with neurology for migraines. Currently taking Ubrelvy 100 mg as needed, and Topamax 100 mg daily. Patient admits to fatigue, could be related to the Topamax. They just increase this dose as her migraines have been uncontrolled approximately 4-5 migraines monthly. Did discuss alternative preventative options such as Qulipta, or injections such as Aimovig, or Emgality. Also did discuss alternative as needed medication such as Nurtec, or Zavzpret. Patient going to follow with neurology in 3 weeks # PHQ-9 total score of 2, no concern regarding mental health at this time. # Patient admits to left wrist pain that comes and goes for the past few months, no red flag symptoms. Could be due to repetitive overuse. Discussed bracing, anti-inflammatories. No further workup indicated at this time but if symptoms persist could consider x-ray/referral as needed Follow-up in May to assess migraines, and blood work. Will mail lab slip for lipid panel and CMP in the meantime. Patient is seen today via telehealth agreement, with consent of patient. I used the following telehealth technology (telephone/[employer]/ [employer]) during this visit This encounter is appropriate and reasonable under the circumstances given the patient's particular presentation. The patient has been advised of the potential risks and limitations of this mode of treatment Including but not limited to the absence of in person physical examination,and has agreed to be treated in a remote fashion in spite of this. Any and all patient questions have been answered. The patient also has been advised to contact this office for worsening conditions or problems and seek medical treatment and/or call 911 if the patient deems either necessary All quetsions answered to patients satisfaction. Patient verbalized understanding of diagnosis and treatments explained. To call sooner prior to next visit it any questions/concerns arise. Case discussed with collaborating physician Dale Boyle who reviewed the assessment and plan. Chart, medications, labs, vital signs reviewed. Dictation was accomplished with the use of [employer] voice recognition software, prone to medical misidentifications and grammatical errors. This is unintentional and the practitioner does try to identify and correct these, but some could still be present. Please do not hesitate to contact practitioner for clarification. 03/13/2024 Migraine without aura and with status migrainosus, not intractable (ICD-10 - G43.001) Denita is a pleasant 29-year-old female presents the office for a complete physical exam. # Up-to-date on flu vaccine and tetanus, declines COVID, up-to-date on Pap smear. # Obtaining fasting blood work, will call with concern # Continue following with dentist, and ophthalmology and TECHNICAL ACCOUNT MANAGER for routine checks. # Following with neurology for migraines. Currently taking Ubrelvy 100 mg as needed, and Topamax 100 mg daily. Patient admits to fatigue, could be related to the Topamax. They just increase this dose as her migraines have been uncontrolled approximately 4-5 migraines monthly. Did discuss alternative preventative options such as Qulipta, or injections such as Aimovig, or Emgality. Also did discuss alternative as needed medication such as Nurtec, or Zavzpret. Patient going to follow with neurology in 3 weeks # PHQ-9 total score of 2, no concern regarding mental health at this time. # Patient admits to left wrist pain that comes and goes for the past few months, no red flag symptoms. Could be due to repetitive overuse. Discussed bracing, anti-inflammatories. No further workup indicated at this time but if symptoms persist could consider x-ray/referral as needed Follow-up in 2 months to assess migraines, and blood work, sooner as needed. Patient seen and examined. Comprehensive discussion was done on the following. 1. Nutrition: It is important to follow a healthy diet based on lots of vegetables and legumes and good fat. Avoid processed food and processed carbohydrates. Prepare your own meals. Read labels and avoid high fructose corn syrup, processed chemicals added to increase shelf life and preprepared meals. Avoid fast foods. Eat slowly and plan meals for a week. Try to count calories and be mindful off daily calorie intake. Get into the habit of keeping an eye on your weight by using an appropriate scale. Learn to log exercise and discussed fitness Apps like [employer] which can help keep log off calories taken versus calories burned. Local food should be preferred. Discussed Dirty Dozen Versus Clean Fifteen. Discussed healthy supplements like fish oil, Tumeric, Curcumin, Melatonin, Resveratrol, Probiotics, Vitamin-D, Alpha-Lipoic acid, Vitamin-D and coconut oil. 2. It is important to exercise regularly. Is a good habit to walk at least 30 minutes a day. Gentle weightlifting with standard precautions to protect the back. Finding activity like cycling or hiking and get into the habit of engaging in it. Stretching before and after the exercises important. It is also important to contact me if there are any problems like shortness of breath, chest pain, back pain and joint or muscle pain associated with the exercise. 3. Discussed age appropriate screening guidelines. Colonoscopy needs to start at age 50 with stool for occult blood as appropriate. There is a new test that can test for genetic abnormalities in the stool sample, Cologuard. This would not replace a colonoscopy but could be used as a screening tool for patients who do not want a colonoscopy. We discussed the importance of early detection of colon cancer. 4. Discussed current guidelines with respect to breast examination, mammogram and pap smear for early detection of breast and cervical cancer. Patient advised to follow up with these appointments. 5. Discussed safe driving and no use of smart phone while driving 6. Age-appropriate immunizations were discussed. A tetanus booster is needed every 10 years. Flu vaccine is recommended every year just before the start of the flu season. Shingles vaccine is recommended after age 50 but not all insurances cover it. Pneumonia vaccine is given after age 65 unless there are certain comorbidities for which it is started earlier. 7. Diagnostic labs were discussed. These could include/not limited to CBC CMP and lipids with fasting blood glucose and insulin levels. Vitamin D and hemoglobin A1c testing might be appropriate. All quetsions answered to patients satisfaction. Patient verbalized understanding of diagnosis and treatments explained. To call sooner prior to next visit it any questions/concerns arise. Case discussed with collaborating physician Dale Boyle who reviewed the assessment and plan. Chart, medications, labs, vital signs reviewed. Dictation was accomplished with the use of [employer] voice recognition software, prone to medical misidentifications and grammatical errors. This is unintentional and the practitioner does try to identify and correct these, but some could still be present. Please do not hesitate to contact practitioner for clarification. 03/21/2024 Mixed hyperlipidemia (ICD-10 - E78.2) # Up-to-date on flu vaccine and tetanus, declines COVID, up-to-date on Pap smear. # Hyperlipidemia: Total cholesterol 228, LDL 124. Discussed fish oil, lifestyle #Creatinine 1.07, chloride 109, carbon dioxide 17. Discussed limiting acidic foods, focusing on a plant based diet first, increasing water intake. Will repeat values for visit in May. Will mail lab slip. # Continue following with dentist, and ophthalmology and TECHNICAL ACCOUNT MANAGER for routine checks. # Following with neurology for migraines. Currently taking Ubrelvy 100 mg as needed, and Topamax 100 mg daily. Patient admits to fatigue, could be related to the Topamax. They just increase this dose as her migraines have been uncontrolled approximately 4-5 migraines monthly. Did discuss alternative preventative options such as Qulipta, or injections such as Aimovig, or Emgality. Also did discuss alternative as needed medication such as Nurtec, or Zavzpret. Patient going to follow with neurology in 3 weeks # PHQ-9 total score of 2, no concern regarding mental health at this time. # Patient admits to left wrist pain that comes and goes for the past few months, no red flag symptoms. Could be due to repetitive overuse. Discussed bracing, anti-inflammatories. No further workup indicated at this time but if symptoms persist could consider x-ray/referral as needed Follow-up in May to assess migraines, and blood work. Will mail lab slip for lipid panel and CMP in the meantime. Patient is seen today via telehealth agreement, with consent of patient. I used the following telehealth technology (telephone/[employer]/ [employer]) during this visit This encounter is appropriate and reasonable under the circumstances given the patient's particular presentation. The patient has been advised of the potential risks and limitations of this mode of treatment Including but not limited to the absence of in person physical examination,and has agreed to be treated in a remote fashion in spite of this. Any and all patient questions have been answered. The patient also has been advised to contact this office for worsening conditions or problems and seek medical treatment and/or call 911 if the patient deems either necessary All quetsions answered to patients satisfaction. Patient verbalized understanding of diagnosis and treatments explained. To call sooner prior to next visit it any questions/concerns arise. Case discussed with collaborating physician Dale Boyle who reviewed the assessment and plan. Chart, medications, labs, vital signs reviewed. Dictation was accomplished with the use of [employer] voice recognition software, prone to medical misidentifications and grammatical errors. This is unintentional and the practitioner does try to identify and correct these, but some could still be present. Please do not hesitate to contact practitioner for clarification. 05/15/2024 Mixed hyperlipidemia (ICD-10 - E78.2) # Stye of the right eye: Patient states is not painful. Discussed warm compresses. Did discuss criteria to call the office for antibiotic initiation. # Up-to-date on flu vaccine and tetanus, declines COVID, up-to-date on Pap smear. # Hyperlipidemia: Total cholesterol 228, LDL 124. Discussed fish oil, lifestyle. Repeating blood work #Creatinine 1.07, chloride 109, carbon dioxide 17. Discussed limiting acidic foods, focusing on a plant based diet first, increasing water intake. Repeating blood work # Continue following with dentist, and ophthalmology and TECHNICAL ACCOUNT MANAGER for routine checks. # Following with neurology for migraines. Currently taking Ubrelvy 100 mg as needed, and Topamax 100 mg daily. Patient admits to fatigue, could be related to the Topamax. They just increase this dose as her migraines have been uncontrolled approximately 4-5 migraines monthly. Did discuss alternative preventative options such as Qulipta, or injections such as Aimovig, or Emgality. Patient states she has a friend and Amipaque which helps her drastically. Also did discuss alternative as needed medication such as Nurtec, or Zavzpret. Patient following up with neurology in July. Did increase Ubrelvy to 150 mg as she noticed an improvement in migraines when she increase from 50 to 100 mg. Is aware the max dose is 200 mg. # PHQ-9 total score of 2, no concern regarding mental health at this time. Follow-up in August, to assess migraines, blood work, sooner as needed. All quetsions answered to patients satisfaction. Patient verbalized understanding of diagnosis and treatments explained. To call sooner prior to next visit it any questions/concerns arise. Case discussed with collaborating physician Dale Boyle who reviewed the assessment and plan. Chart, medications, labs, vital signs reviewed. Dictation was accomplished with the use of [employer] voice recognition software, prone to medical misidentifications and grammatical errors. This is unintentional and the practitioner does try to identify and correct these, but some could still be present. Please do not hesitate to contact practitioner for clarification. 05/29/2024 Migraine syndrome (ICD-10 - G43.909) Denita is a pleasant 29-year-old female present today for urgent visit. Past medical history includes migraine headaches, anxiety, Raynaud's syndrome. # Bunion: Patient has a moderate-sized bunion on the lateral aspect of the PIP joint of the fifth digit of the left foot. No surrounding erythema or inflammation present. Full range of motion of the digit and able to ambulate properly. 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 States that has been there for a while, but has become bothersome in the past 2 to 3 weeks. Patient has tenderness when wearing tight close toed sneakers or while horseback riding. Mild tenderness to palpation of the left foot bunion. Small bunion present bilaterally on right foot as well. No concern for gout at this time given history and physical exam. No recent trauma or concern for fracture. Plan to prescribe celebrex 200 mg twice daily to take as needed. Will defer xray at this time. Plan to place referral to podiatry for further evaluation. # Raynaud's: Followed by podiatry for this. Referral will be placed to podiatry for further monitoring. # Migraines: Followed by neurology. Ubrelvy recently increased from 50 to 100 mg with some improvement. Patient taking Topamax to 100 mg daily. Neurologist added amitriptyline, but patient has not started this. Continue with neurology recommendations. #Hyperlipidemia: Most recent blood work revealed elevated total cholesterol and LDL. Recommended fish oil supplement. Will continue to monitor. All questions answered to patients satisfaction. Patient verbalized understanding of diagnosis and treatments explained. To call sooner prior to next visit it any questions/concerns arise. Case discussed with collaborating physician Dr. Boyle who reviewed the assessment and plan. Chart, medications, labs, vital signs reviewed. Dictation was accomplished with the use of [employer] voice recognition software, prone to medical misidentifications and grammatical errors. This is unintentional and the practitioner does try to identify and correct these, but some could still be present. Please do not hesitate to contact practitioner for clarification. 05/29/2024 Mild hyperlipidemia (ICD-10 - E78.5) Denita is a pleasant 29-year-old female present today for urgent visit. Past medical history includes migraine headaches, anxiety, Raynaud's syndrome. # Bunion: Patient has a moderate-sized bunion on the lateral aspect of the PIP joint of the fifth digit of the left foot. No surrounding erythema or inflammation present. Full range of motion of the digit and able to ambulate properly. 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 States that has been there for a while, but has become bothersome in the past 2 to 3 weeks. Patient has tenderness when wearing tight close toed sneakers or while horseback riding. Mild tenderness to palpation of the left foot bunion. Small bunion present bilaterally on right foot as well. No concern for gout at this time given history and physical exam. No recent trauma or concern for fracture. Plan to prescribe celebrex 200 mg twice daily to take as needed. Will defer xray at this time. Plan to place referral to podiatry for further evaluation. # Raynaud's: Followed by podiatry for this. Referral will be placed to podiatry for further monitoring. # Migraines: Followed by neurology. Ubrelvy recently increased from 50 to 100 mg with some improvement. Patient taking Topamax to 100 mg daily. Neurologist added amitriptyline, but patient has not started this. Continue with neurology recommendations. #Hyperlipidemia: Most recent blood work revealed elevated total cholesterol and LDL. Recommended fish oil supplement. Will continue to monitor. All questions answered to patients satisfaction. Patient verbalized understanding of diagnosis and treatments explained. To call sooner prior to next visit it any questions/concerns arise. Case discussed with collaborating physician Dr. Boyle who reviewed the assessment and plan. Chart, medications, labs, vital signs reviewed. Dictation was accomplished with the use of [employer] voice recognition software, prone to medical misidentifications and grammatical errors. This is unintentional and the practitioner does try to identify and correct these, but some could still be present. Please do not hesitate to contact practitioner for clarification. Plan Of Treatment Pending Test Test Name Order Date MRI : Brain without Contrast 02/01/2023 LIPID PANEL 03/21/2024 LIPID PANEL, STANDARD 03/13/2024 LIPID PANEL, STANDARD 03/09/2023 COMPREHENSIVE METABOLIC PANEL 03/21/2024 COMPREHENSIVE METABOLIC PANEL 03/13/2024 CBC (INCLUDES DIFF/PLT) 03/13/2024 URINALYSIS, COMPLETE 03/13/2024 HEMOGLOBIN A1c 03/13/2024 TSH 03/13/2024 VITAMIN D,25-OH,TOTAL,IA 03/13/2024 Next Appt Details Provider Name:BIPIN SILVERMAN, 03/19/2025 01:00:00 PM, [address], [place], [address], Insurance Providers Payer Name Payer Address Payer Phone Subscriber Number Group Number Insured Name Patient Relationship to Insured Coverage Start Date Coverage End Date [facility] [address] [place] [address] [phone] [id number] Denita Ontiveros Self - patient is the insured 3 Medical (General) History Medical History History ICD Code Migraine headache G43.909 Anxiety F41.9 Raynaud's syndrome Surgical History Surgery Date(Month/Year) mandible surgery 12/22/2018 ac separation 08/07/2019
--- OUTSIDE RECORDS SUMMARY | 2025-02-12 13:16 | XMS_ITS | Clinical Summary ---
Author Organization [facility] Address [address] [place] [phone] Phone Care Team Providers Care Cast Shell Grinder Name Role Phone DonnaJahaira DO Primary Care Provider [phone] Allergies No known active allergies Medications No known medications Active Problems No known active problems Social History Tobacco Use Types Packs/Day Years Used Date Smoking Tobacco: Never Assessed Education Answer Date Recorded Are you interested in more education? Not on magalis e 09/04/2022 Are you concerned about learning? Not on file 09/04/2022 No 09/04/2022 No 09/04/2022 Digital Access Answer Date Recorded No 10/05/2022 No 10/05/2022 Reliable internet access at home? Not on file 10/05/2022 Device with a working camera? Not on file Comments Unknown Sex and Gender Information Value Date Recorded Sex Assigned at Not on file Legal Sex Female 8:51 PM EDT Gender Identity Not on file Sexual Orientation Not on file Plan of Treatment Health Maintenance Due Date Last Done Comments DEPRESSION SCREENING 2008 SMOKING Hx and SMOKELESS TOBACCO SCREENING 02/17/2009 HEPATITIS A VACCINES (2 of 2 - 2-dose series) 05/12/2012 11/10/2011, 05/29/2011 HEPATITIS C SCREENING 02/17/2014 HIV ONE-TIME SCREENING (18-65 YEARS) 02/17/2014 PAP SMEAR 02/17/2017 COVID-19 VACCINE ( season) 2024 08/19/2020 Adult Td,Tdap Booster 07/15/2027 07/14/2017, 007 HIB VACCINES Completed 05/29/1997, 08/08, 1996, Additional history exists MENINGOCOCCAL VACCINES (ACWY) Completed 06/13/2012, 03/25/2007 MENINGOCOCCAL VACCINES (B) Aged Out N o longer eligible based on patient's age to complete this topic PNEUMOCOCCAL VACCINES (0-49 years) Aged Out No longer eligible based on patient's age to complete this topic Medical Devices Not on file Care Teams Cast Shell Grinder Relationship Specialty Start Date End Date Jahaira Thompson DO PCP - General Pediatrics 04/10/20 Additional Source Comments The information contained in this document represents components of the legal health record. It is not the complete legal health record.[facility]
--- OUTSIDE RECORDS SUMMARY | 2025-02-12 13:16 | XMS_ITS | Encounter Summary ---
Author Organization [facility] Address [address] [place] [phone] Phone Care Team Providers Care Sanding Machine Tender Automatic Name Role Phone Rhina Gutiérrez NP Primary Care Provider [phone] Reason for Visit * Reason Onset Date Comments Med Refill Med Refill 08/16/2018 Encounter Details Date Type Department Care Team (Late st Contact Info) Description 08/14/2018 Refill [facility] [address] [place] [address] Jahaira Thompson DO Encounter for surveillance of contraceptive pills (Primary Dx) Social History Tobacco Use Types Packs/Day Years Used Date Smoking Tobacco: Never Comments:Never Smoker Comments Unknown Sex and Gender Information Value Date Recorded Sex Assigned at Not on file Legal Sex Female 6:30 PM EDT Gender Identity Not on file Sexual Orientation Straight 09/13/2019 10 :41 PM EDT documented as of this encounter Miscellaneous Notes * Telephone Encounter - Julissa Johnson MA - 08/16/2018 9:[address] Thompson will you prescribe Last pe 07/14/17 documented in this encounter Plan of Treatment Not on file documented as of this encounter Visit Diagnoses Diagnosis Encounter for surveillance of contraceptive pills- Primary documented in this encounter Care Teams Sanding Machine Tender Automatic Relationship Specialty Start Date End Date Rhina Gutiérrez NP [address] [place] [address] PCP - General Pediatrics 08/23/20 documented as of this encounter
--- OUTSIDE RECORDS SUMMARY | 2025-02-12 13:16 | XMS_ITS | Encounter Summary ---
Author Organization [facility] Address [address] [place] [address] Phone Care Team Providers Care Integration Specialist Name Role Phone Lukas Gutiérrezica YOEL Primary Care Provider [phone] Reason for Visit * Reason Comments Med Refill Encounter Details Date Type Department Care Team (Late st Contact Info) Description 03/01/2020 Refill [facility] [address] [facility] [place] [address] Jahaira Thompson, DO Encounter for surveillance of contraceptive pills Social History Tobacco Use Types Packs/Day Years Used Date Smoking Tobacco: Never Comments:Never Smoker Alcohol Use Standard Drinks/Week Comments Never 0 (1 standard drink = 0.6 oz pur e alcohol) Hunger/Food Answer Date Recorded In the last 12 months, did y ou or your family ever eat less than you felt you should because there wasn't enough money for food? No 09/12/2019 Stable Housing Answer Date Recorded Are you worried that in the next 2 months you may not have stable housing? No 09/12/2019 Transportation Concerns Answer Date Rec orded In the last 12 months, have you or your family ever had to go without healthcare because you didn't have a way to get there? No 09/12/2019 Hazards in Home Answer Date Recorded Think about the place you li ve. Do you have problems with any of the following? Pests (mice or roaches), mold, no/not working smoke detectors, water leaks, no window guards. No 2019 Financing Utilities Answer Date Recorde d In the last 12 months, has t he electric, gas, oil, or water company threatened to shut off your services in your home? No 09/12/2019 Safety at Home Answer Date Recorded Are you or your family worried about feeling saf e in your home? No 09/12/2019 Outside Support Answer Date Recorded Do you feel that you need mo re support from other people or programs to help you care for yourself or your family? No 09/12/2019 Understanding Health Concerns Answer Da te Recorded Do you need help understandi ng your or your child's healthcare needs (diagnosis, medications, plan, etc.)? No 09/12/2019 Financing Health Concerns Answer Date R ecorded In the last 12 months, was t here a time when your child needed to see a doctor or get medications or supplies but could not because of cost? No 09/12/2019 Missing School or Work Answer Date Jesus rded Did you or your child miss s chool or work because of a health problem that could have been avoided? No 09/12/2019 Comments Unknown Sex and Gender Information Value Date Recorded Sex Assigned at Not on file Legal Sex Female 6:30 PM EDT Gender Identity Not on file Sexual Orientation Straight 09/13/2019 10 :41 PM EDT documented as of this encounter Miscellaneous Notes * Telephone Encounter - Corrina Perez MA - 03/01/2020 9:00 AM EDT Last pe 09/13/2019 documented in this encounter Plan of Treatment Not on file documented as of this encounter Visit Diagnoses Diagnosis Encounter for surveillance of contraceptive pills documented in this encounter Care Teams Integration Specialist Relationship Specialty Start Date End Date Rhina Gutiérrez NP [address] [place] [address] PCP - General Pediatrics 08/23/20 documented as of this encounter
--- OUTSIDE RECORDS SUMMARY | 2025-02-12 13:16 | XMS_ITS | Clinical Summary ---
Author Organization [facility] Address [address] [place] [address] Care Team Providers Care Pipe Covering Molder Name Role Phone Jahaira Thompson Primary Care Provider [phone] Allergies No known active allergies Medications norgestimate-eth inyl estradioL (ORTHO TRI-CYCLEN) 0.18/0.215/0.25 mg-35 mcg (28) per tablet Take 1 tablet by mouth. 09/12/2019 Active Social History Tobacco Use Types Packs/Day Years Used Date Smoking Tobacco: Never Smokeless Tobacco: Never Comments Unknown Sex and Gender Information Value Date Recorded Sex Assigned at Not on file Legal Sex Female 9:10 AM EDT Gender Identity Female 02/28/2020 9:32 AM EDT Sexual Orientation Straight 02/28/2020 9: 32 AM EDT Last Filed Vital Signs Vital Sign Reading Time Taken Comments Blood Pressure - - Pulse - - Temperature - - Respiratory Rate - - Oxygen Saturation - - Inhaled Oxygen Concentration - - Weight 56.7 kg (125 lb) 02/29/2020 10:50 AM EDT Height 162.6 cm (5' 4 ) 02/29/2020 10:50 AM EDT Body Mass Index 21.46 02/29/2020 10:50 AM EDT Plan of Treatment Health Maintenance Due Date Last Done Comments HIV Screening 1996 Hepatitis A Vaccines (2 of 2 - 2-dose series) 05/12/2012 11/10/2011, 05/29/2011 Pap Smear 02/17/2017 COVID-19 Vaccine ( season) 2025 Influenza Vaccine (#1) 2025 06/13/2012 DTaP,Tdap,and Td Vaccines (8 - Td or Tdap) 07/15/2027 07/14/2017, 03/25/2007, 01/14/2001, Additional history exists Zoster Vaccines (1 of 2) 02/17/2046 Hepatitis B Vaccines Completed 1996, 1996, 1996 MMR Vaccines Completed 01/14/2001, 02/20/1997 HPV Vaccines Completed 09/23/2007, 05/10, 03/25/2007 Meningococcal Vaccine Completed 06/13/2012, 007 Pneumococcal Vaccine: Pediatrics (0 to 5 Years) and At-Risk Patients (6 to 49 Years) Aged Out No longer eligible based on patient's age to complete this topic Insurance [employer] - OUT OF STATE Care Teams Pipe Covering Molder Relationship Specialty Start Date End Date Jahaira Thompson [address] [place] [id number] PCP - General 02/23/20
--- OUTSIDE RECORDS SUMMARY | 2025-02-12 13:16 | XMS_ITS | Encounter Summary ---
Author Organization [facility] Address [address] [place] [phone] Phone Care Team Providers Care Regional Airline Pilot Name Role Phone Rhina Gutiérrez NP Primary Care Provider [phone] Encounter Details Date Type Department Care Team (Late st Contact Info) Description 05/28/2011 Conversion Encounter [facility] [address] [place] [address] Social History Tobacco Use Types Packs/Day Years Used Date Smoking Tobacco: Never Assessed Comments Unknown Sex and Gender Information Value Date Recorded Sex Assigned at Not on file Legal Sex Female 6:30 PM EDT Gender Identity Not on file Sexual Orientation Straight 09/13/2019 10 :41 PM EDT documented as of this encounter Plan of Treatment Not on file documented as of this encounter Visit Diagnoses Not on filedocumented in this encounter Care Teams Regional Airline Pilot Relationship Specialty Start Date End Date Rhina Gutiérrez NP [address] [place] [address] PCP - General Pediatrics 08/23/20 documented as of this encounter
--- OUTSIDE RECORDS SUMMARY | 2025-02-12 13:16 | XMS_ITS | Clinical Summary ---
Author Organization [facility] Address [address] [place] [id number] Phone Care Team Providers Care Aluminum Siding Mechanic Name Role Phone Brock Rhina YOEL Primary Care Provider [phone] Allergies No known active allergies Medications ondansetron 8 MG tablet Take by mouth every 8 (eight) hours as needed for nausea or vomiting. Active oxyCODONE-acetamin ophen 5-325 MG per tablet Take 1 tablet by mouth every 4 (four) hours as needed for moderate pain. Active clindamycin 75 MG/5ML solution Take by mouth 3 (three) times a day. Active Tri-Previfem 0.18/0.215/0.25 MG-35 MCG per tabletIndications: Encounter for surveillance of contraceptive pills Take 1 tablet by mouth once daily. 84 tablet 1 Active Immunizations Immunization Administration Dates Next Due COVID-19 Pfizer, monovalent, 12+ years 1 DTaP 5 01/14/2001, 8,1996,06/29,1996 HPV, Quadrivalent 09/23/2007,05/24/2007,03/25/20 07 Hep A, ped/adol 11/10/2011,05/29/2011 Hep B, ped/adol 1996,1996,1996 Hib (PRP-T) 05/29/1997, 7,1996,04/24 IPV 01/14/2001 Influenza, injectable, MDCK, preservative free, quadrivalent 03/04/2018 Influenza, injectable, quadr ivalent, preservative free 03/04/2018 Influenza, injectable, trivalent 06/13/2012 MMR 01/14/2001,02/20/1997 Meningococcal Conj (Menactra) MCV4P 06/13/2012,1 05/25/2006 OPV 1996,1996,1996 Tdap 07/14/2017,03/25/2007 Varicella 03/26/2008,05/29/1997 Family History Medical History Relation Name Comments No Known Problems Father Armando No Known Problems Mother Janneth Relation Name Status Comments Father Armando Alive Mother Janneth Alive Social History Tobacco Use Types Packs/Day Years Used Date Smoking Tobacco: Never Comments:Never Smoker Alcohol Use Standard Drinks/Week Comments Never 0 (1 standard drink = 0.6 oz pur e alcohol) Hunger/Food Answer Date Recorded In the last 12 months, did y nagi or your family ever eat less than [...] Orientation Straight 09/13/2019 10 :41 PM EDT Last Filed Vital Signs Vital Sign Reading Time Taken Comments Blood Pressure 112/80 12/28/2018 11:26 AM EDT Pulse 72 09/07/2018 3:49 PM EDT Temperature 36.7 C (98.1 F) 12/28/2018 11:26 AM EDT Respiratory Rate - - Oxygen Saturation - - Inhaled Oxygen Concentration - - Weight 55.2 kg (121 lb 9.6 oz) 12/28/2018 11:26 AM EDT Height 166.4 cm (5' 5.5 ) 12/28/2018 11:26 AM ED T Body Mass Index 19.93 12/28/2018 11:26 AM EDT Plan of Treatment Health Maintenance Due Date Last Done Comments Hepatitis A Vaccines (2 of 2 - 2-dose series) 05/12/2012 11/10/2011, 05/29/2011 Influenza Vaccines (#1) 2024 03/04/20 18, 03/04/2018, 06/13/2012 COVID-19 Vaccine ( season) 2025 09/09/2020, 08/19/2020 DTaP,Tdap,and Td Vaccines (8 - Td or Tdap) 07/15/2027 07/14/2017, 03/25/2007, 01/14/2001, Additional history exists Hepatitis B Vaccines Completed 1996, 1996, 1996 HIB Vaccines Completed 05/29/1997, 08/08, 1996, Additional history exists IPV Vaccines Completed 01/14/2001, 08/08, 1996, Additional history exists MMR Vaccines Completed 01/14/2001, 02/20/1997 HPV Vaccines Completed 09/23/2007, 05/10, 03/25/2007 Varicella Vaccines Completed 03/26/2008, 05/29/1997 Meningococcal Vaccine Completed 06/13/2012, 007 Men B Vaccine Aged Out No longer elig ible based on patient's age to complete this topic Pneumococcal Vaccine Aged Out No long er eligible based on patient's age to complete this topic Procedures * Due to [facility] law, this organization might not be sharing sensitive test results. Procedure Name Priority Date/Time Associated Diagnosis Comments CHLAMYDIA AND GONORRHEA, AMPLIFIED Routine 09/07/2018 4:03 PM EDT Well adult exam from Last 3 Months or Most Recently Relevant to Health Maintenance Results * Due to [place] [employer] law, this organization might not be sharing sensitive test results. * Chlamydia and Gonorrhea, Amplified (09/07/2018 4:03 PM EDT) Chlamydia Trachomatis, DNA Probe NEGATIVE (NEG) [facility] Comment: No Chlamydia Trachomatis RNA detected in this patient's sample (REFERENCE RANGE/NORMAL VALUE: NOT DETECTED) Note: This test uses ornament stapler- mediated amplification method to detect rRNA from C. Trachomatis URINE GC AMP PROBE NEGATIVE (NEG) [facility] Comment: No Neisseria Gonorrhoeae RNA detected in this patient's sample (REFERENCE RANGE/NORMAL VALUE: NOT DETECTED) NOTE: This test uses ornament stapler-mediated amplification method to detect rRNA from N.Gonorrhoeae. A negative result does not preclude infection. In the case of a negative urine result, testing of an endocervical(female) or urethral (male) specimen is recommended if there is high clinical suspicion of infection. Due to very high sensitivity of Nucleic Acid Amplification Test, false positive results may occur. Therefore, specimen handling is extremely important. In patients in whom the disease is unlikely, additional sample for testing should be considered after an initial positive result. The performance characteristics of this test have not been evaluated in children. The Aptima Combo2 assay is not intended for the evaluation of suspected sexual abuse or for other medico-legal indications. The ordering provider should assess if the patient had consensual sex without risk of sexual abuse. Consult the [facility] if needed. Contact phone number . Therapeutic failure or success cannot be determined with the Aptima Combo2 assay since nucleic acid may persist following appropriate antimicrobial therapy. The Centers for Disease Control and Prevention (CDC) recommends confirmatory retesting using culture or a different nucleic acid amplification test when positive results occur, if indicated. Testing performed or reported by [facility], a Service of [facility], [place] [address] Urine 09/07/2018 4:03 PM EDT 09/07/2018 11:50 PM EDT us Jahaira Thompson DO LAB MICROBIOLOGY - GENERAL ORDE HIRAL Final Result [facility] from Last 3 Months or Most Recently Relevant to Health Maintenance Insurance [facility] PPO Care Teams Aluminum Siding Mechanic Relationship Specialty Start Date End Date Rhina Gutiérrez NP [address] [place] [address] PCP - General Pediatrics 08/23/20
--- OUTSIDE RECORDS SUMMARY | 2025-02-12 13:16 | XMS_ITS | Clinical Summary ---
Author Organization [facility] Address [address] [place] [address] Care Team Providers Care Biometrics Specialist Name Role Phone Jahaira Thompson Primary Care Provider [phone] Allergies No known active allergies Medications Medication Sig Dispensed Refills Start Date End Date Status Norgestim-Eth Estrad Triphasic (TRI-PREVIFEM) 0.18/0.215/0.25 MG-35 MCG TABS Take 1 tablet by mouth. 0 09/12/2019 Active Active Problems No known active problems Social History Tobacco Use Types Packs/Day Years Used Date Smoking Tobacco: Never Smokeless Tobacco: Never Alcohol Use Standard Drinks/Week Comments No 0 (1 standard drink = 0.6 oz pur e alcohol) Sex and Gender Information Value Date Recorded Sex Assigned at Not on file Gender Identity Not on file Sexual Orientation Not on file Last Filed Vital Signs Vital Sign Reading Time Taken Comments Blood Pressure - - Pulse - - Temperature - - Respiratory Rate - - Oxygen Saturation - - Inhaled Oxygen Concentration - - Weight 56.7 kg (125 lb) 01/29/2020 1:54 PM EDT Height 162.6 cm (5' 4 ) 01/29/2020 1:54 PM EDT Body Mass Index 21.46 01/29/2020 1:54 PM EDT Plan of Treatment Health Maintenance Due Date Last Done Comments Hepatitis B Vaccines (1 of 3 - 3-dose series) 1996 Hepatitis C Screening 1996 COVID-19 Vaccine (#1) 1996 Depression Screening 2008 Preventative Health Evaluation 02/17/2014 Cervical Cancer Screening (Pap Smear) 02/17/2017 Influenza Vaccine (#1) 2025 8, 03/04/2018, 06/13/2012 DTap / Tdap / Td (8 - Td or Tdap) 07/15/2027 07/14/2017, 03/25/2007, 01/14/2001, Additional history exists Pneumococcal Vaccine Aged Out No long er eligible based on patient's age to complete this topic RSV Ped < 20 months Aged Out No longe r eligible based on patient's age to complete this topic Care Teams Biometrics Specialist Relationship Specialty Start Date End Date Jahaira Thompson DO [facility] [place] [address] PCP - General Pediatrics 01/29/20
--- OUTSIDE RECORDS SUMMARY | 2025-02-12 13:16 | XMS_ITS | Patient Health Record ---
Author Organization [facility] Address [address] [place] [address] Care Team Providers Care Landfill Attendant Name Role Phone Sallie Arango Unavailable [phone] Allergies No Known Allergies Reason For Referral No Information Medications Medication SIG (Take, Route, Fr equency, Duration) Notes Start Date End Date Status Ubrelvy 100 MG 1 tablet as needed, may take second dose at least 2 hours after first dose up to 2 tablets per day as needed Orally Once a day Active Nitro-Bid 2 % as directed Transder mal bid; Duration: 30 days 07/18/2014 Unknown Mirena Active Tri-Previfem Unknown Vitamin C Unknown Nitro-Bid 2 % as directed Transder mal Q 4-6 hours; Duration: as needed 05/12/2017 Unkno wn Topiramate 100 MG 1 tablet Orally Once a day Active Social History Tobacco Use: Social History Observation Description Date Details (start date - stop date) Never Smoker NA - NA Tobacco use other than smoking: Question Answer Notes Are you an other tobacco user? No Tobacco Control (Standard) Question Answer Notes Tobacco use: Nonsmoker Additional Findings: Tobacco non-user Current no nsmoker AUDIT-C (Standard) Question Answer Notes Did you have a drink contain ing alcohol in the past year? Yes How often did you have a dri nk containing alcohol in the past year? Monthly or less (1 point) How many drinks did you have on a typical day when you were drinking in the past year? 1 or 2 drinks (0 point) How often did you have six o r more drinks on one occasion in the past year? Declined to specify (0 point) Points 1 Interpretation Negative Problems Problem Type SNOMED Code ICD Code Onset Dates Problem Status W/U Status Risk Notes Problem Raynaud's disease (745075712) Raynaud's disease without gangrene (I73.00) Active confirmed Vital Signs Blood pressure diastolic 70 mm Hg 06/13/2024 Height 5ft5in in 06/13/2024 Blood pressure systolic 118 mm Hg 06/13/2024 Weight 130 lbs 06/13/2024 BMI 21.63 kg/m2 06/13/2024 Encounters Encounter Location Date Provider Diagnosis [facility] [address] 06/13/2024 Sallie Arango Pain in left foot M79.672 ; Tailor's bunion of left foot M21.622 ; Pain in left ankle and joints of left foot M25.572 ; Bursitis of left foot M77.52 and Ganglion of foot, left M67.[address] [facility] [address] 06/12/2024 Sallie Arango [facility] [address] 07/13/2024 Sallie Arango Assessments Encounter Date Diagnosis (ICD Code) Assessment Notes Treatment Notes Treatment Clinical Notes Section Notes 06/13/2024 Pain in left foot (ICD-10 - M79.672) 06/13/2024 Tailor's bunion of left foot (ICD-10 - M21.622) 06/13/2024 Pain in left ankle and joints of left foot (ICD-10 - M25.572) 06/13/2024 Bursitis of left foot (ICD-10 - M77.52) 06/13/2024 Ganglion of foot, left (ICD-10 - M67.472) Plan Of Treatment Pending Test Test Name Order Date X ray : Foot, left 3V 06/13/2024 [id number] Plate 05/24/2015 25744 I&D ABSCESS- SIMPLE,SINGLE 015 Insurance Providers Payer Name Payer Address Payer Phone Subscriber Number Group Number Insured Name Patient Relationship to Insured Coverage Start Date Coverage End Date [facility] [address] [place] [address] [id number] Tato Erazo Spouse - patient is the spouse of the insured 3 Medical (General) History Medical History History ICD Code Back,Hip,and Knee pain Anxiety Headaches/Migraines raynauds disease Joint implants/screws Surgical History Surgery Date(Month/Year) AC seperation (shoulder) 06/2019-07/2019 Lower Mandible 12/2018
== END 2025-02-12 11:22 | disposition home or self-care (01) ==
LOC: HO.HSM 10:54
PROVIDERS: PCP Pediatrics; Visit Provider Nurse Practitioner
DX: G43.009 Migraine without aura, not intractable, without status migrainosus (principal)
CPT/HCPCS: 99204